=== PATIENT | female | born 1995 | race Caucasian/White ===

== ENCOUNTER → 2017-07-26 | Outpatient (CLI) | payer BC ==
[2017-07-26 17:19] LABS: BASO % 0.2 %; BASO ABS # 0.01 K/uL (0-0.2); EOS % 0.6 %; EOS ABS # 0.03 K/uL (0-0.5); HEMATOCRIT 37.2 % (37-47); HEMOGLOBIN 12.8 g/dL (12.0-16.0); IG# 0.01 K/uL (0.00-0.02); LYMPH % 40.4 %; LYMPH ABS # 1.98 K/uL (1.2-3.4); MEAN CELL VOLUME 89.9 fL (80-100); MEAN CORPUSCULAR HEMOGLOBIN 30.9 pg (25-34); MEAN CORPUSCULAR HGB CONC 34.4 g/dl (32-36); MEAN PLATELET VOLUME 9.7 fL (7.4-10.4); MONO % 4.7 %; MONO ABS # 0.23 K/uL (0.11-0.59); NEUT % 53.9 %; NEUT ABS # 2.64 K/uL (1.4-6.5); PLATELET COUNT 197 K/uL (130-400); RED CELL DISTRIBUTION WIDTH CV 12.4 % (11.5-14.5); RED CELL DISTRIBUTION WIDTH SD 40.4 fL (36.4-46.3)
[2017-07-26 17:42] LABS: ALBUMIN 3.8 gm/dl (3.4-5.0); ALT/SGPT 30 U/L (12-78); AST/SGOT 22 U/L (15-37); BLOOD UREA NITROGEN 11 mg/dl (7-18); CALCIUM 9.4 mg/dl (8.5-10.1); CARBON DIOXIDE 28 mmol/L (21-32); CREATININE 0.93 mg/dl (0.60-1.20); GLUCOSE 96 mg/dl (70-99); SODIUM 138 mmol/L (136-145)
[2017-07-26 17:44] LABS: ALKALINE PHOSPHATASE 47 U/L (45-117); TOTAL PROTEIN 7.5 gm/dl (6.4-8.2)
== END | disposition home or self-care (01) ==
LOC: C.LAB1850 16:29
PROVIDERS: ATTEND Internal Medicine
DX: G40.909 Epilepsy, unspecified, not intractable, without status epilepticus (principal)

== ENCOUNTER 2025-04-09 05:28 | Inpatient (IN) ==
[2025-04-09] MEDS ORDERED: LIDOCAINE 1% LOCAL 20 ML VIAL INFIL PRN (05:52)
[2025-04-09] MEDS: LACTATED RINGER'S 1,000 ML IV PRN (06:09)
[2025-04-09] MEDS ORDERED: SODIUM CHLORIDE 0.9% PF INJ 10 ML VIAL ONE (06:30)
[2025-04-09] MEDS ORDERED: diphenhydrAMINE 50 MG/ML VIAL IV PRN (06:38)
[2025-04-09] MEDS ORDERED: SODIUM CHLORIDE 0.9% PF INJ 10 ML VIAL EPI PRN (06:38)
[2025-04-09] MEDS ORDERED: SODIUM CHLORIDE 0.9% PF INJ 10 ML VIAL EPI STA (06:38)
[2025-04-09] MEDS ORDERED: ONDANSETRON INJ 2 MG/ML 2 ML VIAL IV PRN (06:38)
[2025-04-09] MEDS ORDERED: LIDOCAINE 2%/EPINEPHRINE 1:200,000 20 ML PF EPI STA (06:38)
[2025-04-09] MEDS ORDERED: LIDOCAINE 2% MPF LOCAL 5 ML VIAL EPI PRN (06:38)
[2025-04-09] MEDS ORDERED: NALOXONE HCL 1 MG in SODIUM CHLORIDE 0.9% 1,000 ML IV PRN (06:38)
[2025-04-09] MEDS ORDERED: NALOXONE HCL 0.4 MG/1 ML VIAL/CARP IV PRN (06:38)
[2025-04-09] MEDS ORDERED: NALBUPHINE HCL INJ 10 MG/ML AMP IV PRN (06:38)
[2025-04-09] MEDS ORDERED: ROPIVACAINE 0.5% PF 5 MG/ML 20 ML VIAL EPI PRN (06:38)
[2025-04-09] MEDS ORDERED: BUPIVACAINE 0.25% PF 30 ML VIAL EPI PRN (06:38)
[2025-04-09] MEDS ORDERED: BUPIVACAINE 0.25% PF 30 ML VIAL EPI STA (06:38)
[2025-04-09] MEDS ORDERED: fentANYL 2 MCG/ML BUPIVacaine 0.125%-NSS 100ML BAG EPI PRN (06:38)
--- NOTE | 2025-04-09 06:38 | Anesthesiology Consultation ---
Date of Service April 09, 2025 Assessment & Plan (1) Encounter for pre-operative examination: Chart Review Chart Review: Patient NOT seen in Pre Admission Testing and Acceptable Risk for Labor Epidural Consults Requested none History Height/Weight Height: 5 ft 6 in Weight: 95.254 kg Allergies Allergy/AdvReac Type Severity Reaction Status Date / Time Sulfa (Sulfonamide Allergy Unknown Unknown Verified 04/09/25 05:54 Antibiotics) Medications Home Medications Medication Instructions Recorded Confirmed Last Taken vits no.124-ferrous fum 1 tab PO DAILY 04/09/25 04/09/25 04/08/25 15:00 27 mg iron-folic acid 800 mcg tablet ( Vitamin) Active Medications Generic Name Dose Route Start Last Admin Trade Name Freq PRN Reason Stop Dose Admin Lactated Ringer's 1,000 mls @ 125 mls/hr 04/09/25 05:52 04/09/25 06:09 Lr IV 04/11/25 05:51 999 mls/hr .Q8H PRN Administration L&D Protocol Protocol Past Family History Family History Father Tourette syndrome Brother Tourette syndrome Grandmother (Maternal) Lung cancer Grandfather (Paternal) Hypertension Prostate cancer Family/Other Prostate cancer Denies family history of Myocardial infarction Breast cancer Colorectal cancer Past Surgical History Surgical History S/P wisdom tooth extraction Social History Smoking Status: Never smoker Do You Dip or Chew Tobacco: No Hx Alcohol Use: No Hx Substance Use: No substance use type: does not use Physical Exam Vital Signs Last Vital Signs Temp 99.0 F 04/09/25 05:55 Pulse 93 H 04/09/25 05:55 Resp 18 04/09/25 05:55 BP 128/86 04/09/25 05:55
[2025-04-09 06:39] LABS: Hematocrit (blood only) 35.5 % (37.0-47.0); Hemoglobin 12.2 g/dl (12.0-16.0); Mean Corpuscular Hemoglobin 30.5 pg (25.0-34.0); Mean Corpuscular Volume 88.8 fL (80.0-100.0); Platelet Count 126 K/uL (130-400); RDW Standard Deviation 40.9 fL (36.4-46.3); Red Blood Count 4.00 M/uL (4.20-5.40); White Blood Count 10.22 K/ul (4.8-10.8)
[2025-04-09] MEDS: BUPIVACAINE 0.25% PF 30 ML VIAL ONE (07:05)
[2025-04-09] MEDS: LIDOCAINE 2%/EPINEPHRINE 1:200,000 20 ML PF ONE (07:05)
[2025-04-09] MEDS: fentANYL 2 MCG/ML BUPIVacaine 0.125%-NSS 100ML BAG ONE (07:05)
--- NOTE | 2025-04-09 07:25 | History & Physical Report ---
Date of Service April 09, 2025 Assessment & Plan (1) Active labor at term: Plan: 29-year-old G1, P0 at 39 weeks and 1 day gestation presenting today in active labor, Vital signs stable afebrile, GBS negative, heart rate reassuring, Patient is fully dilated at this point, does not feel pressure or urge to push, has good epidural, Plan to monitor, rest, start pushing when she feels some pressure, All questions were answered. (2) with 39 completed weeks gestation: Admission and Anticipated Discharge Date Admission Date: April 09, 2025 History of Present Illness Primary Care Provider: Flaquita Alejandro MD Patient is an 29-year-old G1, P0 at 39 weeks and 1 day gestation who woke up around midnight this morning with contractions, and then she felt leakage of fluid around 3 AM which was blood-tinged. She called me around 4:30 AM and recommended to come in for check. When she arrived her cervix was 5 to 6 cm dilated and very thin head is -1 station. She requested epidural for pain. Her has been uncomplicated GBS negative. She denies medical problems except remote history of epilepsy in 2011. She has been off medications and has not had seizures. She denies any other medical problems, surgeries, medications. She denies history of STDs including chlamydia, gonorrhea, herpes. Allergies Allergy/AdvReac Type Severity Reaction Status Date / Time Sulfa (Sulfonamide Allergy Unknown Unknown Verified 04/09/25 05:54 Antibiotics) Home Medications Medication Instructions Recorded Confirmed Type vits no.124-ferrous fum 1 tab PO DAILY 04/09/25 04/09/25 History 27 mg iron-folic acid 800 mcg tablet ( Vitamin) Patient History Surgical History S/P wisdom tooth extraction Family History Father Tourette syndrome Brother Tourette syndrome Grandmother (Maternal) Lung cancer Grandfather (Paternal) Hypertension Prostate cancer Family/Other Prostate cancer Denies family history of Myocardial infarction Breast cancer Colorectal cancer Social History Smoking Status: Never smoker Do You Dip or Chew Tobacco: No; Hx Alcohol Use: No Hx Substance Use: No Preferred Language: Azeri Communication Ability: Effective Mixer And Scaler Required: No Beliefs That Will Affect Care: None marital status: Single Current Living Situation: Significant Other Other Information That Helps Us Care for You: No Feels Safe at Home: Yes Safety Concerns: Feels Safe At This Time Assistive Devices: Contacts and Glasses Review of Systems as per Subjective / HPI Physical Exam Constitutional: WD/WN, vitals as above Gastrointestinal (Abdomen): normal bowel sounds, soft, nontender, no hepatosplenomegaly Genitourinary: OB Exam Abdomen: + vertex Manual OB Exam: + cervical dilation 10 cm, + cervical effacement 100% and + station + 1 OB Exam Monitor Tracing: + external uterine monitor used and + category I ( fever able decelerations, scalp stimulation caused acceleration) Results & Data Vital Signs (Past 12 Hours) Vital Signs Temp Pulse Resp BP Pulse Ox 04/09/25 07:19 139 H 04/09/25 07:19 156/99 H 04/09/25 07:18 98 04/09/25 07:18 91 H 04/09/25 07:13 98 04/09/25 07:13 87 04/09/25 07:12 81 04/09/25 07:12 111/67 04/09/25 07:10 83 04/09/25 07:10 128/78 04/09/25 07:08 98 04/09/25 07:08 91 H 04/09/25 07:08 125/78 04/09/25 07:06 90 04/09/25 07:06 121/72 04/09/25 07:04 93 H 04/09/25 07:04 115/74 04/09/25 07:03 98 04/09/25 07:03 90 04/09/25 07:02 89 04/09/25 07:02 124/73 04/09/25 07:01 83 04/09/25 07:01 132/72 04/09/25 06:59 93 H 04/09/25 06:59 121/93 04/09/25 06:58 97 04/09/25 06:58 88 04/09/25 06:56 85 04/09/25 06:56 117/82 04/09/25 06:53 98 04/09/25 06:53 90 04/09/25 06:48 97 04/09/25 06:48 94 H 04/09/25 05:55 37.2 C 93 H 18 128/86 04/09/25 05:41 18 04/09/25 05:41 37.2 C 18 04/09/25 05:40 93 H 128/86 Laboratory Results Lab Results 04/09/25 Range/Units 06:12 WBC 10.22 (4.8-10.8) K/ul RBC 4.00 L (4.20-5.40) M/uL Hgb 12.2 (12.0-16.0) g/dl Hct 35.5 L (37.0-47.0) % MCV 88.8 (80.0-100.0) fL MCH 30.5 (25.0-34.0) pg MCHC 34.4 (32.0-36.0) g/dL RDW Std Deviation 40.9 (36.4-46.3) fL RDW Coeff of [place] 12.5 (11.5-14.5) % Plt Count 126 L (130-400) K/uL MPV 11.6 (9.4-12.4) fL
[2025-04-09 08:25] LABS: Albumin Level 3.1 gm/dl (3.4-5.0); Anion Gap 9.0 (3-11); Bilirubin,Total 0.4 mg/dl (0.2-1.0); Calcium 9.8 mg/dl (8.6-10.3); Carbon Dioxide 22.0 mmol/L (21-32); Chloride 107.0 mmol/L (98-107); Potassium 3.8 mmol/L (3.5-5.1); Sodium 138.0 mmol/L (136-145)
[2025-04-09 08:31] LABS: Alanine Aminotransferase 12.0 U/L (7-52); Albumin Globulin Ratio 1.2 (0.9-2); Alkaline Phosphatase 305.0 U/L (34-104); Blood Urea Nitrogen 11.0 mg/dl (6-23); Creatinine Clr Calc Pharmacy 121.3 ml/min; Globulin 2.5 gm/dl (2.5-4.0); Glucose 87.0 mg/dl (70-99(Fasting)); Total Protein 5.6 gm/dl (6.0-8.3)
[2025-04-09] MEDS: OXYTOCIN 30 UNITS/NSS 30 UNITS/500 ML BAG IV PRN (11:51)
[2025-04-09] MEDS: METHYLERGONOVINE MALEATE 0.2 MG/ML AMP IM ONE (11:58)
[2025-04-09] MEDS ORDERED: OXYTOCIN 30 UNITS/NSS 30 UNITS/500 ML BAG IV PRN (12:09)
[2025-04-09] MEDS ORDERED: ACETAMINOPHEN W/CODEINE #3 1 TAB PO PRN (12:09)
[2025-04-09] MEDS ORDERED: HYDROCORTISONE ACETATE 25 MG SUPP PR PRN (12:09)
[2025-04-09] MEDS ORDERED: DIPHTHER/TETAN/PERTUS Vaccine (Tdap, Adol/Adult) 0.5mL IM ONE (12:09)
--- NOTE | 2025-04-09 12:14 | Delivery Summary ---
Vaginal Delivery Summary Date of Service April 09, 2025 Vaginal Delivery Summary Patient is a 1 para 1 followed by Mehran for care delivery. Patient was admitted in active labor at 39 weeks 1 day gestation. She had a spontaneous unstimulated labor. She received an epidural for pain control which worked well. Delivered a live male via direct support anterior position over an intact perineum. Infant was suctioned through the mouth and the nose. Shoulders were delivered without difficulty. Cord was allowed to pulse for 1 full minute. Cord was then clamped cut by the father. Cord blood was taken. With IV Pitocin running the placenta was removed intact. IM Methergine was also given the upper thigh. Inspection of the perineum revealed a periurethral laceration on the left side. This was approximated with a running 3-0 chromic which also controlled the bleeding. There was also a midline subpleural laceration which was approximated with interrupted [id number] suture 3-0 chromic following this inspection of the perineum revealed tissues to be intact. King catheter was used empty the bladder of over 100 mL. And quantitative blood loss was 149 mL. Patient tolerated delivery well.
--- NOTE | 2025-04-09 12:23 | Anesthesia Procedure Note ---
Date of Service April 09, 2025 Anesthesia Post Epidural Note Vital Signs Vital Signs: Temp Pulse Resp BP Pulse Ox 98.8 F 100 H 18 129/63 90 04/09/25 12:05 04/09/25 12:09 04/09/25 12:05 04/09/25 12:09 04/09/25 11:46 Notes Mental Status: alert / awake / arousable and participated in evaluation Nausea / Vomiting: adequately controlled Pain: adequately controlled Airway Patency, RR, SpO2: stable & adequate BP & HR: stable & adequate Hydration State: stable & adequate Neuraxial Anesthesia: was administered and sensory block is resolving Anesthetic Complications: no major complications apparent and Pt Satisfied with anesthetic care Epidural: Removed without complications and With tip intact
[2025-04-09] MEDS: BENZOCAINE 20% SPRY 85 APPLN/85 GM CAN EXT PRN (13:34)
[2025-04-09] MEDS: IBUPROFEN 600 MG TAB PO PRN (13:34)
[2025-04-09] MEDS ORDERED: METHYLERGONOVINE MALEATE 0.2 MG/ML AMP ONE (15:54)
[2025-04-09] MEDS: DOCUSATE SODIUM 100 MG CAP PO SCH (20:25)
[2025-04-10 06:47] LABS: Hematocrit (blood only) 32.1 % (37.0-47.0); Hemoglobin 10.9 g/dl (12.0-16.0); Mean Corpuscular Hemoglobin 30.4 pg (25.0-34.0); Mean Corpuscular Volume 89.4 fL (80.0-100.0); Platelet Count 125 K/uL (130-400); RDW Standard Deviation 42.6 fL (36.4-46.3); Red Blood Count 3.59 M/uL (4.20-5.40); White Blood Count 9.40 K/ul (4.8-10.8)
--- NOTE | 2025-04-10 08:49 | Obstetrical Progress Note ---
Date of Service April 10, 2025 Subjective Ambulation: ambulating normally Voiding: no voiding problems Passing Gas:: Yes Diet Tolerance:: regular diet Lochia:: Small Feeding Type:: breast feeding Current Pain Level(1-10): 0 doing well. tent d/c in AM Physical Exam Constitutional WD/WN, vitals as above Gastrointestinal (Abdomen) Inspection/Auscultation: abdomen normal to inspection abdomen soft and non-tener. fundus firm below U. Musculoskeletal Extremities: extremities normal to inspection Neurologic patellar DTR's 2+ bilat, sensation intact Psychiatric A+Ox3, euthymic affect Results & Data Vital Signs (Past 12 Hours) Vital Signs Temp Pulse Resp BP Pulse Ox O2 Del Method 04/10/25 03:29 36.8 C 90 18 137/85 96 Room Air 04/09/25 23:30 36.5 C 85 16 132/86 97 Room Air Laboratory Results 04/09/25 04/10/25 06:12 06:03 WBC 10.22 9.40 RBC 4.00 L 3.59 L Hgb 12.2 10.9 L Hct 35.5 L 32.1 L MCV 88.8 89.4 MCH 30.5 30.4 MCHC 34.4 34.0 RDW Std Deviation 40.9 42.6 RDW Coeff of [place] 12.5 13.0 Plt Count 126 L 125 L MPV 11.6 11.5 Sodium 138 Potassium 3.8 Chloride 107 Carbon Dioxide 22 Anion Gap 9 BUN 11 Creatinine 0.81 Est Cr Clr Drug Dosing 121.3 eGFR 101.97 BUN/Creatinine Ratio 13.6 Glucose 87 Calcium 9.8 Total Bilirubin 0.4 AST 19 ALT 12 Alkaline Phosphatase 305 H Total Protein 5.6 L Albumin 3.1 L Globulin 2.5 Albumin/Globulin Ratio 1.2 Treponema pallidum Ab Negative
[2025-04-10] MEDS: ACETAMINOPHEN 325 MG TAB PO PRN (09:02)
[2025-04-10] MEDS: PRENATAL VITAMIN 1 TAB PO SCH (09:03)
[2025-04-11 00:07] VITALS: TEMP 97.5; O2SAT 96
[2025-04-11 06:08] LABS: Hematocrit (blood only) 31.4 % (37.0-47.0); Hemoglobin 10.9 g/dl (12.0-16.0)
[2025-04-11 09:19] VITALS: RESP 18
--- NOTE | 2025-04-11 10:35 | Obstetrical Progress Note ---
Date of Service April 11, 2025 Subjective Ambulation: ambulating normally Voiding: no voiding problems Passing Gas:: Yes Diet Tolerance:: regular diet Lochia:: Small Feeding Type:: breast feeding Current Pain Level(1-10): 0 doing well. plans for d/c. Physical Exam Constitutional WD/WN, vitals as above Gastrointestinal (Abdomen) Inspection/Auscultation: abdomen normal to inspection abdomen soft and non-tender. fundus firm below U. Musculoskeletal Extremities: extremities normal to inspection Skin no rashes, warm and dry Neurologic patellar DTR's 2+ bilat, sensation intact Psychiatric A+Ox3, euthymic affect Results & Data Vital Signs (Past 12 Hours) Vital Signs Temp Pulse Resp BP Pulse Ox O2 Del Method 04/11/25 09:15 36.4 C L 86 18 126/86 96 Room Air 04/11/25 00:06 36.4 C L 85 17 124/84 96 Room Air Laboratory Results 04/09/25 04/10/25 04/11/25 06:12 06:03 05:52 WBC 10.22 9.40 RBC 4.00 L 3.59 L Hgb 12.2 10.9 L 10.9 L Hct 35.5 L 32.1 L 31.4 L MCV 88.8 89.4 MCH 30.5 30.4 MCHC 34.4 34.0 RDW Std Deviation 40.9 42.6 RDW Coeff of [place] 12.5 13.0 Plt Count 126 L 125 L MPV 11.6 11.5 Sodium 138 Potassium 3.8 Chloride 107 Carbon Dioxide 22 Anion Gap 9 BUN 11 Creatinine 0.81 Est Cr Clr Drug Dosing 121.3 eGFR 101.97 BUN/Creatinine Ratio 13.6 Glucose 87 Calcium 9.8 Total Bilirubin 0.4 AST 19 ALT 12 Alkaline Phosphatase 305 H Total Protein 5.6 L Albumin 3.1 L Globulin 2.5 Albumin/Globulin Ratio 1.2 Treponema pallidum Ab Negative
[2025-04-11 10:47] VITALS: BP 121/80; PULSE 83
== END 2025-04-11 11:30 | disposition home or self-care (01) | DRG 807 ==
LOC: OPB 05:28 → 4S1 05:32 → 4E2 15:08